=== PATIENT | female | born 1945 ===

== ENCOUNTER 2019-06-27 08:52 | Day surgery (SDC) | payer OTHER ==
[2019-06-27] MEDS ORDERED: BETAMET ACET/BETAMET NA PH 30 MG/5 ML VIAL ONE (10:46)
[2019-06-27] MEDS ORDERED: DEXAMETHASONE SOD PHOSPHATE 4 MG/1 ML VIAL ONE (10:46)
[2019-06-27] MEDS ORDERED: BUPIVACAINE HCL/PF 0.5% (5 MG/ML) 30 ML VIAL IJ ONE (10:47)
[2019-06-27] MEDS ORDERED: methylPREDNISolone ACET (DEPO) 80 MG/1 ML VIAL ONE (10:51)
[2019-06-27] MEDS ORDERED: LIDOCAINE HCL 1%, 10 MG/ML (20ML VIAL) ONE (10:51)
[2019-06-27] MEDS ORDERED: MIDAZOLAM HCL 2 MG/2 ML SINGLE DOSE VIAL ONE (11:07)
[2019-06-27] MEDS ORDERED: IOHEXOL 180 MG/1 ML ML IJ ONE (11:20)
[2019-06-27] MEDS ORDERED: methylPREDNISolone ACET (DEPO) 80 MG/1 ML VIAL IM ONE (11:20)
[2019-06-27] MEDS ORDERED: LIDOCAINE HCL 1%, 10 MG/ML (20ML VIAL) NR ONE (11:20)
[2019-06-27] MEDS ORDERED: LIDOCAINE HCL/PF 2% SDV 5ML VIAL ONE (11:41)
[2019-06-27] MEDS ORDERED: KETOROLAC TROMETHAMINE 30 MG/1 ML VIAL ONE (11:42)
[2019-06-27 11:57] VITALS: TEMP 97.7
--- NOTE | 2019-06-27 12:06 | PROC ---
Procedure Note Procedure: BRIEF OPERATIVE NOTES Preoperative Diagnosis: M54.17 Lumbosacral Neuritis, M51.26 Lumbar Disc Displacement, MS51.37 Lumbosacral Disc Degeneration. Postoperative Diagnosis: Same Surgeon: Dr. Hedy Cruz MD Anesthesiologist: Anesthesia: MAC Blood Loss: None Procedure Performed: Left Transforaminal Epidural Fluoroscopically Guided Steroid Injection x3 Procedure: The risks and benefits of the procedure were reviewed with the patient. An informed, written consent was taken and charted. The patient was transferred to the fluoroscopy suite and positioned prone with all standard monitoring in place. Monitored Anesthesia Care was implanted. Proper aseptic precautions were executed and sterile drape was applied in the area. Fluoroscopy was then utilized to delineate the anatomy of the lumbosacral spine. Surface landmarks were identified as well. An oblique fluoroscopic view was created to optimize access to the neural foramen L4-L5, L5-S1. The overlying skin was infiltrated with 3cc 1% MPF Lidocaine. A 22 gauge 3.5 inches regional block needle was passed to position the tip in the neural foramen mentioned above. Satisfactory needle placement was confirmed by fluoroscopy. The tip of the needle was positioned near the 6 o'clock position of the pedicles L4, L5 in AP view and in the cephalic aspect of the foramen on lateral view. Negative aspiration was noted. The patient denied any pain or paresthesia. At each level the patient received 1.5cc of Omnipaque 180 mg/cc which were injected slowly in divided doses with negative aspiration being noted between injections. The patient denied any pain or paresthesia. Satisfactory spread of contrast was seen with production of neurogram(s) as well as epidurogram(s). There was spread of contrast along the nerve root going into the epidural space and spreading to other adjacent segments up and down. There was no intravascular uptake. At each level the patient received 1cc of MPF 1% Lidocaine and 40mg Depomedrol that were injected slowly and in divided doses with negative aspiration being noted between injections. The patient denied any pain or paresthesia. The needle was removed with the tip intact and a Band-Aid was applied. Vital signs remain stable. The patient was transferred to the recovery room area. The patient was monitored , reassessed and eventually discharged after an appropriate observatory period. No complications were noted. GENERAL INSTRUCTIONS: The patient will follow up in 3-4 weeks for a repeat injection. But if there is more than 90% improvement in pain, the patient will follow up for a routine office visit to discuss goals/end points or maintenance strategies for pain. In the interim the patient will continue to take medications (OTC or prescribed ) and/or physical therapy as previously discussed until next appointment. The patient has been given discharge instructions and will call or correspond with our office as necessary. Thank you for letting me participate in the care of the patient.
[2019-06-27 14:26] VITALS: BP 150/81; PULSE 96
== END 2019-06-27 14:00 | disposition home or self-care (01) ==
LOC: JASU-SURG 08:52
PROVIDERS: ATTEND Anesthesiology
PROC: 3E0R33Z Introduction of Anti-inflammatory into Spinal Canal, Percutaneous Approach (ICD-10-PCS; 2019-06-27)
PROC: 3E0R3BZ Introduction of Anesthetic Agent into Spinal Canal, Percutaneous Approach (ICD-10-PCS; principal; 2019-06-27 11:20)
DX: M51.17 Intervertebral disc disorders with radiculopathy, lumbosacral region (principal); M51.16 Intervertebral disc disorders with radiculopathy, lumbar region
CPT/HCPCS: 76000-TC-FY; 82962